=== PATIENT | female | born 1970 | race Caucasian/White ===

== ENCOUNTER 2022-02-06 08:48 | Emergency (ER) | payer BC, SELFPAY ==
--- NOTE | ~2022-02-06 | CT_ITS ---
EXAMINATION: CT ABDOMEN AND PELVIS WITHOUT CONTRAST CLINICAL INFORMATION: Kidney stone. Right flank pain. COMPARISON: None TECHNIQUE: Multidetector volumetric imaging was performed from the superior aspect of the liver through the pubic symphysis. Sagittal and coronal reformatted images were obtained on the technologist's workstation. This CT examination was performed using dose optimization techniques as appropriate, variously including the following: *Automated exposure control *Adjustment of mA and/or kV according to patient size (this includes techniques or standardized protocols for targeted exams where dose is matched to indication/reason for exam; i.e. extremities or head) *Use of iterative reconstruction technique DLP: 6-0 mGy-cm FINDINGS: LUNG BASES: The visualized lung bases are unremarkable. LIVER, GALLBLADDER, AND BILIARY TREE: The liver is normal in size, shape, and attenuation. No focal hepatic lesion or biliary ductal dilatation is present. The gallbladder is unremarkable with no evidence of radiopaque gallstones, gallbladder wall thickening, or obvious pericholecystic inflammatory changes. PANCREAS: Unremarkable. SPLEEN: Unremarkable. ADRENAL GLANDS: Unremarkable. KIDNEYS AND URETERS: There is right hydronephrosis and ureteral dilatation from a 2 mm right distal ureteral stone. The right renal pelvis is dilated out of proportion to the ureter questionable for right UPJ obstruction. No UPJ stone is seen. There are several small right renal stones, largest measuring 2 mm. The left kidney is normal. BLADDER: Not optimally distended. GASTROINTESTINAL TRACT: The small and large bowel are unremarkable. The appendix is unremarkable. ABDOMINAL WALL: No significant hernia is appreciated. LYMPH NODES: Normal. VASCULAR: Unremarkable. PELVIC VISCERA: There is an IUD in the uterus in satisfactory position. Uterus and adnexa are otherwise unremarkable. OSSEOUS STRUCTURES: Degenerative disc disease at L5-S1. CT/CT abdomen pelvis wo IV con IMPRESSION: Right hydronephrosis and ureteral dilatation from a 2 mm right distal ureteral stone. The right renal pelvis is dilated questionable for right UPJ obstruction as well. No right UPJ stone seen. Small right renal stones. Fleischner guidelines were followed.
[2022-02-06 08:56] VITALS: BP 150/99; PULSE 122; RESP 16; TEMP 36.6; O2SAT 98; BMI 29.9
[2022-02-06 10:38] LABS: MANUAL DIFF FLAG NO
[2022-02-06 10:39] LABS: Basophils Absolute Auto 0.1 X10*3/uL (0.0-0.2); Basophils Percent Auto 0.6 % (0-2); Eosinophils Absolute Auto 0.1 X10*3/uL (0.0-0.4); Hematocrit 41.5 % (37.0-47.0); Hemoglobin 14.4 g/dl (12.0-16.0); Imm Gran Abs Auto 0.04 X10*3/uL (0.00-0.03); Imm Gran Pct Auto 0.4 % (0.0-0.4); Lymphocytes Percent Auto 18.1 % (20-40); Mean Corpuscular HGB Conc 34.7 g/dl (31.0-35.0); Mean Corpuscular Hemoglobin 30.8 pg (27.0-33.0); Mean Corpuscular Volume 88.9 fL (80.0-98.0); Mean Platelet Volume 9.7 fL (9.4-12.3); Monocytes Absolute Auto 0.8 X10*3/uL (0.1-1.2); Monocytes Percent Auto 6.8 % (2-11); Neutrophils Absolute Auto 8.3 x10*3/uL (2.0-8.3); Neutrophils Percent Auto 73.1 % (45-73); Platelet Count 291 X10*3/uL (160-400); Red Blood Count 4.67 X10*6/uL (4.20-5.50); Red Cell Distribution Width 12.5 % (11.0-16.0); White Blood Count 11.3 X10*3/uL (4.8-10.8)
[2022-02-06 10:51] LABS: Appearance Urine Clear; Color Urine Yellow; Glucose Urine UA Negative (Negative); Leukocyte Esterase Urine Negative (Negative); Nitrite Urine Negative (Negative); PH 5.5 (5.0-9.0); UMIC TRIGGER UACC YES; Urine Blood Large (3+) (Negative); Urine Ketones Negative (Negative); Urine Protein Negative (Neg-Trace)
[2022-02-06 10:53] LABS: COVID-19 Test Negative (Negative)
[2022-02-06 10:56] LABS: Bacteria Urine None Seen (None Seen); Hyaline Casts Urine 0-2 /LPF (0-2); Squamous Epithelial Cell Urine 0-2 /HPF (0-2); WBC Urine 0-5 /HPF (0-5)
--- NOTE | 2022-02-06 11:00 | ED_ITS ---
HPI - Female Genitourinary General Chief complaint: Urogenital-Female Stated complaint: back pain no inj Time Seen by Provider: 02/06/22 09:30 Source: patient Mode of arrival: ambulatory Limitations: no limitations History of Present Illness HPI Narrative: 51-year-old female presents to ED for right flank pain. Patient states yesterday she had dysuria and increased urinary frequency and had a telemedicine visit and was discharged with antibiotics for presumptive UTI. Patient then states this morning she woke up with right flank pain. Patient states no fever, chills, nausea vomiting, or hematuria. Patient denies any vaginal lesions or vaginal discharge Related Data Previous Rx's Medication Instructions Recorded ketorolac 10 mg tablet 10 mg PO QID PRN pain 5 days #20 02/06/22 tabs ondansetron HCl 4 mg tablet 4 mg PO Q6H PRN nausea and 02/06/22 vomiting 2 days #8 tabs oxycodone 5 mg capsule 5 mg PO TID PRN pain 3 days #9 caps 02/06/22 Allergies Allergy/AdvReac Type Severity Reaction Status Date / Time prednisone AdvReac Agitated Verified 02/06/22 10:00 Review of Systems Review of Systems: RIght flank pain. dysuria Yes all other systems are reviewed and are negative [facility] Social History Social History Advance Directives: No Advance Directives Information Provided: No Physical Exam Vital Signs: Vital Signs: Last Vital Signs Temp 98.4 F 02/06/22 13:20 Pulse 94 02/06/22 13:20 Resp 16 02/06/22 08:56 BP 126/65 02/06/22 13:20 Pulse Ox 96 02/06/22 13:20 O2 Del Method 02/06/22 13:20 BMI result Body Mass Index 29.9 Const: General: cooperative, healthy appearing, comfortable, no acute distress, well developed, alert, awake and Physically active Orientation/consciousness: oriented to time and patient oriented x3 HEENT: Head: Yes normal to inspection, Yes No palpable skull fracture present, Yes normocephalic, Yes atraumatic and No abrasion Eyes: General: appearance normal, both eyes and all related structures Neck: Neck: Yes normal visual inspection, Yes full ROM, Yes no lymphadenopathy, Yes no meningeal signs, Yes trachea midline, Yes supple, No anterior neck swelling and No tender Chest: Chest palpation & inspection: normal inspection of the chest and normal palpation of entire chest wall Resp: Effort & Inspection: normal respiratory effort and able to speak in complete sentences Auscultation: clear to auscultation bilaterally Cardio: Jugular venous distension: no JVD Heart sounds: S1 normal heart sound present and S2 normal heart sound present GI: Inspection: Yes normal to inspection and No abdominal wall ecchymosis Palpation (GI): Soft to palpation, not firm, nontender, no guarding and not rigid : General: Yes CVA tenderness (RIght) Back/Spine/Pelvis: Back: CVA tenderness (RIght) and No back tenderness Skin: General skin exam: no rashes or lesions noted and elasticity normal Neuro: General: oriented to time, patient oriented x3, gait normal, no meningeal signs and CN's II-XI intact bilaterally Cranial nerves: Yes CN's II-XII intact bilaterally Extrem: General: Yes normal to inspection and Yes full ROM Psych: Appearance: grossly normal, well kempt and not disheveled Course Course Course Narrative: Labs, UA and CT scan ordered. Reevaluation(s) Reevaluation #1: CT scan shows 2 mm the ureter stone with right hydronephrosis. UA negative for urinary tract infection. UA shows blood. White blood cell count only 11,000. Patient is stable. Patient is safe for discharge. Patient given Toradol and Zofran Time: 22:14 MDM - Female Genitourinary MDM Narrative Medical decision making narrative: Ureteral Stone Lab Data Result diagrams: 02/06/22 10:33 02/06/22 10:33 Labs: Lab Results 02/06/22 02/06/22 02/06/22 Range/Units 10:33 10:33 10:33 WBC 11.3 H (4.8-10.8) X10*3/uL RBC 4.67 (4.20-5.50) X10*6/uL Hgb 14.4 (12.0-16.0) g/dl Hct 41.5 (37.0-47.0) % MCV 88.9 (80.0-98.0) fL MCH 30.8 (27.0-33.0) pg MCHC 34.7 (31.0-35.0) g/dl RDW 12.5 (11.0-16.0) % Plt Count 291 (160-400) X10*3/uL MPV 9.7 (9.4-12.3) fL Immature Gran % (Auto) 0.4 (0.0-0.4) % Neut % (Auto) 73.1 H (45-73) % Lymph % (Auto) 18.1 L (20-40) % [place] % (Auto) 6.8 (2-11) % Eos % (Auto) 1.0 (0-4) % Baso % (Auto) 0.6 (0-2) % Lymph # (Auto) 2.0 (1.2-4.9) X10*3/uL [place] # (Auto) 0.8 (0.1-1.2) X10*3/uL Eos # (Auto) 0.1 (0.0-0.4) X10*3/uL Baso # (Auto) 0.1 (0.0-0.2) X10*3/uL Abs Immat Gran (auto) 0.04 H (0.00-0.03) X10*3/uL Absolute Neuts (auto) 8.3 (2.0-8.3) x10*3/uL Absolute Nucleated RBC 0.000 (0.0-0.012) X10*3/uL Nucleated RBC % (auto) 0.0 (0.0-0.2) /100WBC Sodium 142 (135-145) mmol/L Potassium 4.6 (3.3-5.1) mmol/L Chloride 106 (96-108) mmol/L Carbon Dioxide 26 (22-29) mmol/L Anion Gap 15 (12-20) BUN 14 (9-16) mg/dL Creatinine 0.90 (0.5-1.4) mg/dL Estim Creat Clear Calc 78.9 Estimated GFR > 60 Random Glucose 122 H (60-115) mg/dL Calcium 9.7 (8.4-10.2) mg/dL Total Bilirubin 0.3 (0.0-1.0) mg/dL AST 23 (5-31) U/L ALT 28 (0-31) U/L Alkaline Phosphatase 70 (39-117) U/L Total Protein 7.2 (6.5-8.0) g/dL Albumin 4.1 (3.5-5.0) g/dL Beta HCG, Quant < 2 mIU/mL Urine Color Urine Appearance Urine pH (5.0-9.0) Ur Specific [place] (1.005-1.025) Urine Protein (Neg-Trace) mg/dL Urine Glucose (UA) (Negative) mg/dL Urine Ketones (Negative) mg/dL Urine Blood (Negative) Urine Nitrite (Negative) Ur Leukocyte Esterase (Negative) Urine RBC (0-2) /HPF Urine WBC (0-5) /HPF Ur Squamous Epith Cells (0-2) /HPF Urine Bacteria (None Seen) Hyaline Casts (0-2) /LPF COVID-19 ([facility]) Negative (Negative) COVID-19 Clin Com See Note 02/06/22 Range/Units 10:33 WBC (4.8-10.8) X10*3/uL RBC (4.20-5.50) X10*6/uL Hgb (12.0-16.0) g/dl Hct (37.0-47.0) % MCV (80.0-98.0) fL MCH (27.0-33.0) pg MCHC (31.0-35.0) g/dl RDW (11.0-16.0) % Plt Count (160-400) X10*3/uL MPV (9.4-12.3) fL Immature Gran % (Auto) (0.0-0.4) % Neut % (Auto) (45-73) % Lymph % (Auto) (20-40) % [place] % (Auto) (2-11) % Eos % (Auto) (0-4) % Baso % (Auto) (0-2) % Lymph # (Auto) (1.2-4.9) X10*3/uL [place] # (Auto) (0.1-1.2) X10*3/uL Eos # (Auto) (0.0-0.4) X10*3/uL Baso # (Auto) (0.0-0.2) X10*3/uL Abs Immat Gran (auto) (0.00-0.03) X10*3/uL Absolute Neuts (auto) (2.0-8.3) x10*3/uL Absolute Nucleated RBC (0.0-0.012) X10*3/uL Nucleated RBC % (auto) (0.0-0.2) /100WBC Sodium (135-145) mmol/L Potassium (3.3-5.1) mmol/L Chloride (96-108) mmol/L Carbon Dioxide (22-29) mmol/L Anion Gap (12-20) BUN (9-16) mg/dL Creatinine (0.5-1.4) mg/dL Estim Creat Clear Calc Estimated GFR Random Glucose (60-115) mg/dL Calcium (8.4-10.2) mg/dL Total Bilirubin (0.0-1.0) mg/dL AST (5-31) U/L ALT (0-31) U/L Alkaline Phosphatase (39-117) U/L Total Protein (6.5-8.0) g/dL Albumin (3.5-5.0) g/dL Beta HCG, Quant mIU/mL Urine Color Yellow Urine Appearance Clear Urine pH 5.5 (5.0-9.0) Ur Specific [place] 1.010 (1.005-1.025) Urine Protein Negative (Neg-Trace) mg/dL Urine Glucose (UA) Negative (Negative) mg/dL Urine Ketones Negative (Negative) mg/dL Urine Blood Large (3+) H (Negative) Urine Nitrite Negative (Negative) Ur Leukocyte Esterase Negative (Negative) Urine RBC 6-10 H (0-2) /HPF Urine WBC 0-5 (0-5) /HPF Ur Squamous Epith Cells 0-2 (0-2) /HPF Urine Bacteria None Seen (None Seen) Hyaline Casts 0-2 (0-2) /LPF COVID-19 ([facility]) (Negative) COVID-19 Clin Com Discharge Plan Discharge Clinical Impression: Calculus, ureteral Patient Disposition: Home, Self-Care Instructions: Renal Colic (ED), Ureteral Stones (ED) Additional Instructions: Return to the ED immediately for worsening flank pain, fever, chills, abdominal pain, nausea, vomiting, inability to tolerate p.o., gross hematuria, weakness, or any other concerning symptoms. You will be discharged with pain medication. You will need follow-up with urologist and primary care provider. You will be given days off from work. Prescriptions: New ketorolac 10 mg tablet 10 mg PO QID PRN (Reason: pain) 5 Days Qty: 20 0RF Rx Instructions: Patient received 30 mg IM Toradol oxycodone 5 mg capsule 5 mg PO TID PRN (Reason: pain) 3 Days Qty: 9 0RF Rx Instructions: Partial Fill upon patient request. Side effect is drowsiness. Do not take at work or while driving ondansetron HCl 4 mg tablet 4 mg PO Q6H PRN (Reason: nausea and vomiting) 2 Days Qty: 8 0RF Referrals: [facility] [place] Urology Services [Provider Group] (RIght ureteral stone) Stand Alone Forms: Work/School Release Interventions: ED Discharge Assessment Last Done: 02/06/22 13:34 Discharge Date/Time: 02/06/22 13:35 Print Language: Bruneian
[2022-02-06 11:01] LABS: Alanine Aminotransferase 28 U/L (0-31); Albumin Level 4.1 g/dL (3.5-5.0); Alkaline Phosphatase 70 U/L (39-117); Anion Gap 15 (12-20); Aspartate Amino Transferase 23 U/L (5-31); Bilirubin Total 0.3 mg/dL (0.0-1.0); Blood Urea Nitrogen 14 mg/dL (9-16); Calcium 9.7 mg/dL (8.4-10.2); Carbon Dioxide 26 mmol/L (22-29); Chloride 106 mmol/L (96-108); Creatinine Clr Calc Pharmacy 78.9; Estimated Glomerular Filt Rate > 60; Glucose Random 122 mg/dL (60-115); Potassium 4.6 mmol/L (3.3-5.1); Sodium 142 mmol/L (135-145); Total Protein 7.2 g/dL (6.5-8.0)
[2022-02-06 11:58] LABS: HCG Quantitative < 2 mIU/mL
[2022-02-06] MEDS: Ketorolac Tromethamine 30 MG/ML VIAL IM (12:59)
[2022-02-06] MEDS: Ondansetron ODT 4 MG TAB.RAPDIS TRANSLINGU (13:03)
[2022-02-06 13:20] VITALS: BP 126/65; PULSE 94; TEMP 36.9; O2SAT 96
== END 2022-02-06 13:35 | disposition home or self-care (01) ==
PROVIDERS: Physician Assistant; Emergency Provider Student in an Organized Health Care Education/Training Program
DX: N13.2 Hydronephrosis with renal and ureteral calculous obstruction (principal); Z20.822 Contact with and (suspected) exposure to COVID-19
CPT/HCPCS: 74176; 80053; 81001; 84702; 85025; 87635; 96372; 99283; 99284; J1885

== ENCOUNTER 2023-10-24 06:08 | Emergency (ER) | payer BC, SELFPAY ==
[2023-10-24] VITALS (7 sets, daily range): BP systolic 102–146; BP diastolic 51–102; PULSE 94–136; RESP 12–18; TEMP 36.7–36.9; O2SAT 93–100; BMI 32.6
--- NOTE | 2023-10-24 | ECG_ITS ---
Test Reason : ABDOMINAL PAIN Blood Pressure : / mmHG Vent. Rate : 121 BPM Atrial Rate : 121 BPM P-R Int : 148 ms QRS Dur : 070 ms QT Int : 326 ms P-R-T Axes : 042 -02 071 degrees QTc Int : 462 ms Sinus tachycardia Cannot rule out Anterior infarct , age undetermined Abnormal ECG No previous ECGs available Referred By: Generic ED Physician Electronically Signed By:BEVERLY MIRELES MD
--- NOTE | ~2023-10-24 | CT_ITS ---
EXAMINATION: CT ABDOMEN AND PELVIS WITH AND WITHOUT CONTRAST TRIPLE PHASE CT gi bleed abd pel wo/w IVcon INDICATION: Female of 53 years with history of Reason for Exam abd pain, dark vomit COMPARISON: Most recent abdominal/pelvis CT: 02/06/2022. TECHNIQUE: Triphasic study was performed. Multidetector volumetric imaging was performed from the lung bases to the pubic symphysis following the administration of: Oral contrast: None Intravenous contrast: 80 mL Omnipaque 350 No contrast reaction reported. Sagittal and coronal reformatted images were obtained on the technologist workstation. This CT examination was performed using dose optimization techniques as appropriate, variously including the following: *Automated exposure control. *Adjustment of mA and/or kV according to patient size (this includes techniques or standardized protocols for targeted exams where dose is matched to indication/reason for exam, i.e., extremities or head). *Use of iterative reconstruction technique. Total exam dose-length product 1682 mGy-cm. FINDINGS: VISUALIZED CHEST: Visualized lung bases demonstrate mild bilateral lower lobe dependent atelectasis. No pleural effusion. Mediastinum demonstrates normal heart size. No pericardial effusion. LIVER, GALLBLADDER, AND BILIARY TREE: Liver is of low attenuation due to hepatic steatosis without intrahepatic masses, ductal dilatation. The gallbladder demonstrates no obvious pericholecystic inflammatory changes or gallbladder wall thickening. No cholelithiasis. No perihepatic ascites. PANCREAS: Normal size. No definite mass, surrounding fluid, or inflammatory changes. SPLEEN: Normal size. No focal lesion. No perisplenic ascites. ADRENAL GLANDS: Normal in size. No masses. KIDNEYS AND URETERS: The kidneys are normal in size, shape, and attenuation. No hydronephrosis or hydroureter. No renal calculi. GASTROINTESTINAL TRACT: Loops of small bowel are dilated the stomach is unremarkable consistent with an appearance of small bowel obstruction. The zone of transition seen in the right lower quadrant. Appendix is not identified. There is no evidence of contrast extravasation to suggest bleed. Colonic loops are decompressed. No evidence of diverticulitis, colitis, diverticulosis. ABDOMINAL WALL: No hernias. LYMPHOVASCULAR STRUCTURES: No lymphadenopathy. The aorta is normal in caliber. BLADDER: Not fully distended, limiting its complete evaluation. No wall thickening. No focal mass or bladder calculi seen. PELVIC VISCERA: There is IUD in the uterus OSSEOUS STRUCTURES: There are degenerative changes at the level of L5-S1 CT/CT gi bleed abd pel wo/w IVcon IMPRESSION: 1. Small bowel obstruction with zone of transition in the right lower quadrant. No evidence of contrast extravasation to suggest bleed. 2. Hepatic steatosis.
[2023-10-24] MEDS: 0.9 % Sodium Chloride 1,000 ML 999 ML IV (06:45)
[2023-10-24 06:55] LABS: Basophils Percent Auto 0.2 % (0-2); Hematocrit 45.2 % (37.0-47.0); Imm Gran Abs Auto 0.06 X10*3/uL (0.00-0.03); Imm Gran Pct Auto 0.4 % (0.0-0.4); Lymphocytes Absolute Auto 1.3 X10*3/uL (1.2-4.9); Lymphocytes Percent Auto 7.8 % (20-40); MANUAL DIFF FLAG NO; Mean Corpuscular HGB Conc 35.4 g/dl (31.0-35.0); Mean Corpuscular Hemoglobin 31.3 pg (27.0-33.0); Mean Corpuscular Volume 88.3 fL (80.0-98.0); Monocytes Absolute Auto 0.6 X10*3/uL (0.1-1.2); Monocytes Percent Auto 3.3 % (2-11); Neutrophils Absolute Auto 14.5 x10*3/uL (2.0-8.3); Neutrophils Percent Auto 88.3 % (45-73); Platelet Count 345 X10*3/uL (160-400); Red Blood Count 5.12 X10*6/uL (4.20-5.50); Red Cell Distribution Width 12.8 % (11.0-16.0); White Blood Count 16.4 X10*3/uL (4.8-10.8)
[2023-10-24 07:15] LABS: Alanine Aminotransferase 16 U/L (0-31); Albumin Level 4.2 g/dL (3.5-5.0); Alkaline Phosphatase 82 U/L (39-117); Anion Gap 15 (12-20); Aspartate Amino Transferase 21 U/L (5-31); Bilirubin Total 0.4 mg/dL (0.0-1.0); Blood Urea Nitrogen 16 mg/dL (9-16); Calcium 9.9 mg/dL (8.4-10.2); Carbon Dioxide 21 mmol/L (22-29); Chloride 108 mmol/L (96-108); Creatinine Clr Calc Pharmacy 76.2; Estimated Glomerular Filt Rate > 60; Glucose Random 213 mg/dL (60-115); Lipase 21 U/L (8-78); Potassium 4.4 mmol/L (3.3-5.1); Sodium 140 mmol/L (135-145); Total Protein 7.9 g/dL (6.5-8.0)
--- NOTE | 2023-10-24 07:26 | ED.ABDPAIN ---
HPI - Abdominal Pain General Chief Complaint: Abdominal Pain Stated Complaint: kidney pain, stomach pain Time Seen by Provider: 10/24/23 06:34 Source: patient and RN notes reviewed Mode of arrival: ambulatory Limitations: no limitations History of Present Illness ED Provider: Velia Madrigal PA-C HPI narrative: This is a 54-year-old female, with no known medical problems, who presents emergency department with complaints of abdominal pain, diarrhea, vomiting and unable to tolerate p.o. since yesterday at 5pm. Patient states that she ate chips and salsa and since then she has had multiple episodes of vomiting which was dark in color, as well as epigastric pain and multiple episodes of diarrhea. She denies any bloody or black stool. She denies any fevers or chills. She has been attempting to drink fluids however this just causes her to vomit and have worsening pain. She states that she has had several episodes of similar symptoms in the past which typically resolve after 24 hours however states that this pain is much worse. She does not see a primary care physician. She has never had a colonoscopy. She denies any chest pain, shortness of breath, or urinary symptoms. She rarely drinks alcohol. She does not take ibuprofen regularly. No other complaints or concerns at this time. MD elicited complaint: abdominal pain Onset (ago): day(s) Pain Consistency: constant Location: epigastric Severity: similar to previous episodes Quality: cramping and aching Radiation: none Migration to: no migration Exacerbating factors: eating Relieving factors: nothing Associated symptoms: nausea, vomiting and diarrhea Related Data Previous Rx's ?Medication ?Instructions ?Recorded ketorolac 10 mg tablet 10 mg PO QID PRN pain 5 days #20 02/06/22 tabs ondansetron HCl 4 mg tablet 4 mg PO Q6H PRN nausea and 02/06/22 vomiting 2 days #8 tabs oxycodone 5 mg capsule 5 mg PO TID PRN pain 3 days #9 caps 02/06/22 aluminum-mag hydroxide-simethicone 5 ml PO 5XD PRN dyspepsia #3,000 mL 10/24/23 200 mg-200 mg-20 mg/5 mL oral susp (Maalox Advanced) omeprazole 20 mg capsule,delayed 20 mg PO DAILY 2 weeks #14 caps 10/24/23 release ondansetron 4 mg disintegrating 4 mg PO Q8H PRN nausea and 10/24/23 tablet vomiting #14 tabs Allergies Allergy/AdvReac Type Severity Reaction Status Date / Time prednisone AdvReac Agitated Verified 10/24/23 06:14 Review of Systems Review of Systems Yes all other systems are reviewed and are negative Constitutional: Reports as per HPI Physical Exam ED Vital Signs: Vital Signs - 24 hr 10/24/23 06:11 10/24/23 06:24 10/24/23 07:50 Temperature 98.3 F 98.3 F Pulse Rate 130 H 136 H Respiratory Rate 18 12 16 Blood Pressure 127/85 146/102 H Pulse Oximetry 96 93 Oxygen Delivery Method Room Air Room Air 10/24/23 08:00 10/24/23 09:26 10/24/23 12:19 Temperature 98.1 F 98.5 F Pulse Rate 100 94 Respiratory Rate 14 16 16 Blood Pressure 102/51 L 105/55 L Pulse Oximetry 94 100 Oxygen Delivery Method Room Air Room Air 10/24/23 15:30 Temperature 98.5 F Pulse Rate 94 Respiratory Rate 18 Blood Pressure 105/55 L Pulse Oximetry 100 Oxygen Delivery Method Room Air BMI result Body Mass Index 32.6 Const General: cooperative, comfortable and no acute distress Orientation/consciousness: patient oriented x3 Limitations: no limitations HENMD Head: Yes normal to inspection, Yes normocephalic and Yes atraumatic Ears: hearing grossly normal bilaterally General nose exam: Normal external nose present Face and sinus: Yes normal facial exam Mouth: Normal oral and palatal mucosa present, oropharynx normal and moist mucous membranes Throat: Yes posterior oropharynx normal Eyes General: appearance normal, both eyes and all related structures Eyelids: Yes eyelids normal Conjunctivae: conjunctivae normal Sclerae: sclerae normal Pupils: Equal, round and reactive pupils present EOM: EOMs intact bilaterally Neck Neck: Yes normal visual inspection, Yes full ROM and Yes no lymphadenopathy Lymphatic: no lymphadenopathy noted Chest Chest palpation & inspection: normal inspection of the chest Resp Effort & Inspection: normal respiratory effort and able to speak in complete sentences Auscultation: clear to auscultation bilaterally, no crackles, no rales, no rhonchi and no wheezes Cardio Rate: regular rate Rhythm: regular rhythm Heart sounds: S1 normal heart sound present and S2 normal heart sound present GI Other: Patient with tenderness palpation in the epigastrium, negative Burks's sign. Abdomen is soft No tenderness palpation in the right lower quadrant hypoactive bowel sounds present in all 4 quadrants. Inspection: Yes normal to inspection Skin General skin exam: no rashes or lesions noted Trauma: no lacerations or abrasions Wounds: no wounds Neuro General: patient oriented x3 and moves all extremities Cranial nerves: Yes Equal, round and reactive pupils present Extrem General: Yes normal to inspection Right upper extremity: normal to inspection Left upper extremity: normal to inspection Right lower extremity: normal to inspection Left lower extremity: normal to inspection Course Reevaluation(s) Reevaluation #1: CT scan returns, revealing small bowel obstruction with zone of transition in the right lower quadrant. No evidence of contrast extravasation to suggest bleed. Hepatic steatosis. I reviewed this workup with my attending physician, Dr. Tenorio, as she does have some hyperattenuation of the posterior aspect of the stomach concerning for possible ulcer - therefore I am reaching out to the radiology department. She is feeling improved after IV morphine and IV zofran, and IV protonix, however notes increased pain with PO intake. She still remains to be stable at this time. I spoke to radiologist, Dr. Parmar, to review increased density in the stomach wall, she reports that this is likely a pill versus foreign body. Does not appear to be metal due to density level. It is not within the wall of the lumen. Dr. Parmar states that this is not a ulcer. Discussed with my attending physician. Will continue to closely monitor and page out to surgeon, Dr. Segal for recommendations. Time: 12:43 Reevaluation #2: Surgical PA came and assessed patient and reviewed overall case. Surgical PA advises to p.o. challenge and see if her pain returns. She is currently asymptomatic and feeling well. Patient given crackers and water and will reassess in a 1/2 hour to an hour to ensure her symptoms do not return. Time: 13:38 Reevaluation #3: Patient re-evaluated, eating and drinking without return of symptoms. Advised that symptoms are likely gastritis in nature. Advised to slowly advance diet, will discharge on PPI, Maalox and Zofran. Given strict return precautions. She understands and agrees with plan. Also given referral to GI for follow-up as she has not had her routine colonoscopies. Patient stable for discharge. Time: 14:30 Medical Decision Making Medical Decision Making MDM Narrative: This is a 53-year-old female, with no known medical problems, who presents emergency department with complaints of epigastric pain, nausea, vomiting, and diarrhea since yesterday. On arrival, patient appears to be uncomfortable secondary to pain. She is tenderness palpation in the epigastrium. She has no rebound or guarding. Negative Burks sign. She has had dark-colored vomit therefore I am concerned for possible gastric ulcers/bleeding ulcer. She is hemodynamically stable. Differential diagnoses including gastric ulcers, bleeding ulcer, gastroenteritis, small bowel obstruction, acute abdomen, cholecystitis. Plan: Labs, EKG, CT abdomen and pelvis, UA Differential Diagnosis Differential Diagnoses: The differential diagnosis associated with the presentation includes Consult Healthcare Provider Management of the patient was discussed with: Senior Java Web Application Developer Dr. Segal, Tala gann PA-C Lab Data [facility] Lab Attestation statement: I reviewed the patient's lab results. Slight leukocytosis at 16.4 with left shift, chemistry within normal limits. She does have hyperglycemia at 2:13 a.m., no known diagnosis of diabetes. Urine with high specific gravity, glucosuria, small blood, and rbc's. Does not appear to be infected. She has not . 10/24/23 06:50 10/24/23 06:50 Labs: Lab Results 10/24/23 10/24/23 10/24/23 Range/Units 06:50 10:09 12:41 WBC 16.4 H (4.8-10.8) X10*3/uL RBC 5.12 (4.20-5.50) X10*6/uL Hgb 16.0 (12.0-16.0) g/dl Hct 45.2 (37.0-47.0) % MCV 88.3 (80.0-98.0) fL MCH 31.3 (27.0-33.0) pg MCHC 35.4 H (31.0-35.0) g/dl RDW 12.8 (11.0-16.0) % Plt Count 345 (160-400) X10*3/uL MPV 10.0 (9.4-12.3) fL Immature Gran % (Auto) 0.4 (0.0-0.4) % Neut % (Auto) 88.3 H (45-73) % Lymph % (Auto) 7.8 L (20-40) % Roberts % (Auto) 3.3 (2-11) % Eos % (Auto) 0.0 (0-4) % Baso % (Auto) 0.2 (0-2) % Lymph # (Auto) 1.3 (1.2-4.9) X10*3/uL Roberts # (Auto) 0.6 (0.1-1.2) X10*3/uL Eos # (Auto) 0.0 (0.0-0.4) X10*3/uL Baso # (Auto) 0.0 (0.0-0.2) X10*3/uL Abs Immat Gran (auto) 0.06 H (0.00-0.03) X10*3/uL Absolute Neuts (auto) 14.5 H (2.0-8.3) x10*3/uL Absolute Nucleated RBC 0.000 (0.0-0.012) X10*3/uL Nucleated RBC % (auto) 0.0 (0.0-0.2) /100WBC Sodium 140 (135-145) mmol/L Potassium 4.4 (3.3-5.1) mmol/L Chloride 108 (96-108) mmol/L Carbon Dioxide 21 L (22-29) mmol/L Anion Gap 15 (12-20) BUN 16 (9-16) mg/dL Creatinine 0.95 (0.5-1.4) mg/dL Estim Creat Clear Calc 76.2 Estimated GFR > 60 Random Glucose 213 H (60-115) mg/dL Estimat Average Glucose 143 mg/dL Hemoglobin A1c % 6.6 H (<6.0) % Calcium 9.9 (8.4-10.2) mg/dL Total Bilirubin 0.4 (0.0-1.0) mg/dL AST 21 (5-31) U/L ALT 16 (0-31) U/L Alkaline Phosphatase 82 (39-117) U/L Troponin I High Sens < 2.7 (<3.5-17.0) ng/L Total Protein 7.9 (6.5-8.0) g/dL Albumin 4.2 (3.5-5.0) g/dL Lipase 21 (8-78) U/L Urine Color Yellow Urine Appearance Clear Urine pH 5.5 (5.0-9.0) Ur Specific [place] >= 1.030 H (1.005-1.025) Urine Protein Trace (Neg-Trace) mg/dL Urine Glucose (UA) 100 H (Negative) mg/dL Urine Ketones Negative (Negative) mg/dL Urine Blood Small (1+) H (Negative) Urine Nitrite Negative (Negative) Ur Leukocyte Esterase Negative (Negative) Urine RBC 6-10 H (0-2) /HPF Urine WBC 0-5 (0-5) /HPF Ur Squamous Epith Cells 0-2 (0-2) /HPF Urine Bacteria None Seen (None Seen) Hyaline Casts 0-2 (0-2) /LPF Urine Test NEGATIVE (NEGATIVE) Radiology Impression Discussion of test interpretation with radiology: I have reviewed the radiologist's reading. Radiologist Impression: Addendum: Findings discussed with DC Madrigal at 1225 on 10/24/2023 Addendum Dictated By: Hilario Parmar MD Addendum Signed By: <Electronically signed by Hilario Parmar MD in OV> 10/24/23 1228 Addendum Cosigned By: DD/ TD/TT: / EXAMINATION: CT ABDOMEN AND PELVIS WITH AND WITHOUT CONTRAST TRIPLE PHASE CT gi bleed abd pel wo/w IVcon INDICATION: Female of 53 years with history of Reason for Exam abd pain, dark vomit COMPARISON: Most recent abdominal/pelvis CT: 02/06/2022. TECHNIQUE: Triphasic study was performed. Multidetector volumetric imaging was performed from the lung bases to the pubic symphysis following the administration of: Oral contrast: None Intravenous contrast: 80 mL Omnipaque 350 No contrast reaction reported. Sagittal and coronal reformatted images were obtained on the technologist workstation. This CT examination was performed using dose optimization techniques as appropriate, variously including the following: *Automated exposure control. *Adjustment of mA and/or kV according to patient size (this includes techniques or standardized protocols for targeted exams where dose is matched to indication/reason for exam, i.e., extremities or head). *Use of iterative reconstruction technique. Total exam dose-length product 1682 mGy-cm. FINDINGS: VISUALIZED CHEST: Visualized lung bases demonstrate mild bilateral lower lobe dependent atelectasis. No pleural effusion. Mediastinum demonstrates normal heart size. No pericardial effusion. LIVER, GALLBLADDER, AND BILIARY TREE: Liver is of low attenuation due to hepatic steatosis without intrahepatic masses, ductal dilatation. The gallbladder demonstrates no obvious pericholecystic inflammatory changes or gallbladder wall thickening. No cholelithiasis. No perihepatic ascites. PANCREAS: Normal size. No definite mass, surrounding fluid, or inflammatory changes. SPLEEN: Normal size. No focal lesion. No perisplenic ascites. ADRENAL GLANDS: Normal in size. No masses. KIDNEYS AND URETERS: The kidneys are normal in size, shape, and attenuation. No hydronephrosis or hydroureter. No renal calculi. GASTROINTESTINAL TRACT: Loops of small bowel are dilated the stomach is unremarkable consistent with an appearance of small bowel obstruction. The zone of transition seen in the right lower quadrant. Appendix is not identified. There is no evidence of contrast extravasation to suggest bleed. Colonic loops are decompressed. No evidence of diverticulitis, colitis, diverticulosis. ABDOMINAL WALL: No hernias. LYMPHOVASCULAR STRUCTURES: No lymphadenopathy. The aorta is normal in caliber. BLADDER: Not fully distended, limiting its complete evaluation. No wall thickening. No focal mass or bladder calculi seen. PELVIC VISCERA: There is IUD in the uterus OSSEOUS STRUCTURES: There are degenerative changes at the level of L5-S1 CT/CT gi bleed abd pel wo/w IVcon IMPRESSION: 1. Small bowel obstruction with zone of transition in the right lower quadrant. No evidence of contrast extravasation to suggest bleed. 2. Hepatic steatosis. Dictated By: Hilario Parmar MD Medications Administered Discontinued Medications Generic Name Dose Route Start Last Admin Trade Name Freq PRN Reason Stop Dose Admin Sodium Chloride 1,000 mls @ 999 mls/hr 10/24/23 06:45 10/24/23 08:20 Ns IV 10/24/23 07:45 Infused .Q1H1M JULIANA Infusion Iohexol 100 ml 10/24/23 08:23 10/24/23 08:23 Iohexol 350 Mg/Ml 100 Ml Infus..Btl IV 10/24/23 08:24 80 ml ONCE ONE Administration Morphine Sulfate 4 mg 10/24/23 07:30 10/24/23 07:50 Morphine Sulfate 4 Mg/Ml Cartridge IVPUSH 10/24/23 07:31 4 mg ONCE ONE Administration Protocol Ondansetron HCl 4 mg 10/24/23 07:28 10/24/23 07:47 Ondansetron Hcl 4 Mg/2 Ml Vial IVPUSH 10/24/23 07:29 4 mg ONCE ONE Administration Pantoprazole Sodium 40 mg 10/24/23 07:28 10/24/23 07:50 Pantoprazole Sodium 40 Mg/10 Ml Vial IVPUSH 10/24/23 07:29 40 mg ONCE ONE Administration Discharge Plan Discharge Clinical Impression: Abdominal pain, Gastritis, Hyperglycemia, Diabetes Patient Disposition: Home, Self-Care Instructions: Gastritis (ED), Type 2 Diabetes in Adults: New Diagnosis (ED), Abdominal Pain (ED), Diabetes and Nutrition (ED), Diabetes and Exercise (ED) Additional Instructions: You were seen in the emergency department due to abdominal pain. Your CT scan revealed a small bowel obstruction. You were seen by the general surgery team who did not recommend surgery at this time and advised to advance diet as tolerated. Your symptoms are likely due to peptic ulcer disease/gastritis. Avoid alcohol, as well as ibuprofen/NSAIDs as this can worsen pain. I am recommending you take omeprazole, you may also take Maalox as needed for symptomatic pain. I am also prescribing you Zofran, this is the nausea medication that you received in the department today. Advanced diet as tolerated including eating a bland diet, liquid diet, and bland food, avoid spicy or fried food. You need to follow-up with your primary care physician. I am also giving your referral to Gastroenterology. Call to make an appointment. If any new or worsening symptoms occur including but not limited to worsening pain, chest pain, shortness of breath, please return for re-evaluation. You also had an elevated glucose level as well as an elevated hemoglobin A1c at 6.6. This is consistent with diabetes. This is borderline therefore I am having you follow-up with your PCP. Prescriptions: New omeprazole 20 mg capsule,delayed release(DR/EC) 20 mg PO DAILY 14 Days Qty: 14 0RF ondansetron 4 mg tablet,disintegrating 4 mg PO Q8H PRN (Reason: nausea and vomiting) Qty: 14 0RF alum-mag hydroxide-simeth [Maalox Advanced] 200-200-20 mg/5 mL suspension 5 ml PO 5XD PRN (Reason: dyspepsia) Qty: 3000 0RF Rx Instructions: administer between meals and at bedtime No Action ketorolac 10 mg tablet 10 mg PO QID PRN (Reason: pain) 5 Days Qty: 20 0RF Rx Instructions: Patient received 30 mg IM Toradol oxycodone 5 mg capsule 5 mg PO TID PRN (Reason: pain) 3 Days Qty: 9 0RF Rx Instructions: Partial Fill upon patient request. Side effect is drowsiness. Do not take at work or while driving ondansetron HCl 4 mg tablet 4 mg PO Q6H PRN (Reason: nausea and vomiting) 2 Days Qty: 8 0RF Referrals: [facility] [place] Gastroenterology Services [Provider Group] Interventions: ED Discharge Assessment Last Done: 10/24/23 15:30 Discharge Date/Time: 10/24/23 15:33 Print Language: Hungarian
[2023-10-24] MEDS: ondansetron HCL 4 MG/2 ML VIAL IVPUSH (07:47)
[2023-10-24] MEDS: Pantoprazole Sodium 40 MG/10 ML VIAL IVPUSH (07:50)
[2023-10-24] MEDS: Morphine Sulfate 4 MG/ML CARTRIDGE IVPUSH (07:50)
[2023-10-24 08:22] LABS: Troponin-I High Sensitivity < 2.7 ng/L (<3.5-17.0)
[2023-10-24] MEDS: iohexoL 350 MG/ML 100 ML INFUS..BTL IV (08:23)
[2023-10-24 10:16] LABS: Appearance Urine Clear; Color Urine Yellow; Glucose Urine UA 100 mg/dL (Negative); Leukocyte Esterase Urine Negative (Negative); Nitrite Urine Negative (Negative); PH 5.5 (5.0-9.0); Specific Gravity - Urine >= 1.030 (1.005-1.025); UMIC TRIGGER UACC YES; Urine Blood Small (1+) (Negative); Urine Ketones Negative (Negative); Urine Protein Trace mg/dL (Neg-Trace)
[2023-10-24 10:17] LABS: UPreg QC Valid YES; Urine Pregnancy NEGATIVE (NEGATIVE)
[2023-10-24 10:18] LABS: Bacteria Urine None Seen (None Seen); Hyaline Casts Urine 0-2 /LPF (0-2); Squamous Epithelial Cell Urine 0-2 /HPF (0-2); WBC Urine 0-5 /HPF (0-5)
[2023-10-24 12:54] LABS: Estimated Average Glucose 143 mg/dL; Hemoglobin A1c % 6.6 % (<6.0)
--- NOTE | 2023-10-24 13:41 | PM.CNGS ---
History of Present Illness Consult details Consult date: 10/24/23 Reason for consult: abdominal pain Narrative: Shanique Moran is a 53 year old female with no known PMH who presented to the ED with c/o epigastric abdominal pain. She reports she developed severe epigastric pain last night after eating chips and salsa. The pain was nonradiating. It was associated with nausea, vomiting, diarrhea. She reports emesis was brown liquid in nature. She felt bloated at that time and took gas-x. She denies sick contacts, new medications, recent travel. She denies fever, chills, constipation, melena, hematochezia, prior surgical history. She has never had a colonoscopy before. She reports three prior episodes of similar pain which all resolved within 24 hrs. She reports after one episode she began an over the counter PPI and felt improved however developed bloody stools after day 13 so she stopped. She has been following a bland diet and had been feeling better until the episode today. She denies cigarette smoking, significant ETOH use. She was taking Ibuprofen for her back pain but stopped taking them after her initial episode in June. She feels improved today after receiving morphine and zofran and currently denies any abdominal pain or nausea. Work up in the ED included CBC, BMP, LFTs which was significant for a leukocytosis of 16.4. CT scan shows dilated loops of small bowel, no evidence of contrast extravasation to suggest bleed. Review of Systems Constitutional: Constitutional: Denies chills and Denies fever(s) ENT: Denies dizziness Cardiovascular: Cardiovascular: Denies chest pain and Denies dyspnea Respiratory: Respiratory: Denies dyspnea Gastrointestinal: Gastrointestinal: Reports as per HPI, Reports abdominal pain, Denies melena, Denies hematochezia, Reports heartburn, Reports diarrhea, Reports nausea and Reports vomiting Genitourinary: Genitourinary: Denies dysuria Integumentary/Breasts: Skin/Breast: Denies rash and Denies jaundice Neurologic: Denies dizziness PMFSH Social History Social History (System 02/19/23 @ 15:20 by Kira Car) Smoked in Last 30 Days: No Use of substances other than those prescribed or required for medical reasons: No Advance Directives: No Advance Directives Information Provided: No Do you have a plan to hurt others: No Plan Patient : No Meds Allergies Allergy/AdvReac Type Severity Reaction Status Date / Time prednisone AdvReac Agitated Verified 10/24/23 06:14 Physical Exam Vital Signs: Vital Signs: Last Vital Signs Temp 98.5 F 10/24/23 12:19 Pulse 94 10/24/23 12:19 Resp 16 10/24/23 12:19 BP 105/55 L 10/24/23 12:19 Pulse Ox 100 10/24/23 12:19 O2 Del Method Room Air 10/24/23 12:19 BMI result Body Mass Index 32.6 Const: General: comfortable, no acute distress and alert Nutritional Appearance: well nourished Orientation/consciousness: patient oriented x3 Resp: Effort & Inspection: normal respiratory effort Cardio: Rate: regular rate GI: Inspection: Yes normal to inspection, No distended, No scar and No visible herniation Palpation (GI): Soft to palpation, nontender, no guarding, not rigid and No Rebound tenderness present Percussion: Yes normal to percussion Skin: General skin exam: no rashes or lesions noted and no jaundice Neuro: General: patient oriented x3 and moves all extremities Results Labs 10/24/23 06:50 10/24/23 06:50 Labs: Abnormal lab results 10/24/23 10/24/23 10/24/23 Range/Units 06:50 10:09 12:41 WBC 16.4 H (4.8-10.8) X10*3/uL MCHC 35.4 H (31.0-35.0) g/dl Neut % (Auto) 88.3 H (45-73) % Lymph % (Auto) 7.8 L (20-40) % Abs Immat Gran (auto) 0.06 H (0.00-0.03) X10*3/uL Absolute Neuts (auto) 14.5 H (2.0-8.3) x10*3/uL Carbon Dioxide 21 L (22-29) mmol/L Random Glucose 213 H (60-115) mg/dL Hemoglobin A1c % 6.6 H (<6.0) % Ur Specific [place] >= 1.030 H (1.005-1.025) Urine Glucose (UA) 100 H (Negative) mg/dL Urine Blood Small (1+) H (Negative) Urine RBC 6-10 H (0-2) /HPF Short CBC 10/24/23 Range/Units 06:50 WBC 16.4 H (4.8-10.8) X10*3/uL Hgb 16.0 (12.0-16.0) g/dl Hct 45.2 (37.0-47.0) % Plt Count 345 (160-400) X10*3/uL BMP 10/24/23 06:50 Sodium 140 Potassium 4.4 Chloride 108 Carbon Dioxide 21 L BUN 16 Creatinine 0.95 Calcium 9.9 Liver Function 10/24/23 Range/Units 06:50 Total Bilirubin 0.4 (0.0-1.0) mg/dL AST 21 (5-31) U/L ALT 16 (0-31) U/L Alkaline Phosphatase 82 (39-117) U/L Albumin 4.2 (3.5-5.0) g/dL Urine 10/24/23 Range/Units 10:09 Urine Color Yellow Urine Appearance Clear Urine pH 5.5 (5.0-9.0) Ur Specific [place] >= 1.030 H (1.005-1.025) Urine Protein Trace (Neg-Trace) mg/dL Urine Glucose (UA) 100 H (Negative) mg/dL Urine Test NEGATIVE (NEGATIVE) All other labs normal. Imaging Abdomen CT scan report/results: report reviewed and image reviewed Assessment and Plan (1) Abdominal pain: Status: Acute Plan 53 year old female with acute onset epigastric pain associated with nausea, vomiting. CT scan shows very mildly dilated small bowel however she has air in rectum and is having diarrhea which goes against SBO. Her overall history seems more consistent with gastritis/PUD. She is non toxic appearing and her abdomen is very benign and nontender. If she can tolerate oral intake, stable for dc to home with outpatient gastroenterology follow up for possible gastritis/PUD and she also needs a colonoscopy. Procedures Date of Service Date of Service: 10/24/23
== END 2023-10-24 15:33 | disposition home or self-care (01) ==
PROVIDERS: Emergency Medicine; Physician Assistant Medical; Emergency Provider Emergency Medicine
DX: K29.70 Gastritis, unspecified, without bleeding (principal); E11.65 Type 2 diabetes mellitus with hyperglycemia; R10.9 Unspecified abdominal pain; R19.7 Diarrhea, unspecified; R10.13 Epigastric pain; R11.2 Nausea with vomiting, unspecified
CPT/HCPCS: 36415; 74178; 80053; 81001; 81025; 83036; 83690; 84484; 85025; 93005; 96361; 96374; 96375; 99284; 99285; C9113; J2270; J2405; Q9967

== ENCOUNTER → 2023-10-24 06:18 | Outpatient (BNV) | payer BC, SELFPAY | PROVIDERS: Emergency Provider Emergency Medicine; Visit Provider Physician Assistant Surgical | DX: R10.9 Unspecified abdominal pain (principal) | CPT/HCPCS: 99283 ==

== ENCOUNTER → 2023-10-24 06:33 | Outpatient (BNV) | payer BC, SELFPAY | PROVIDERS: Emergency Provider Emergency Medicine; Visit Provider Internal Medicine Cardiovascular Disease | DX: R00.0 Tachycardia, unspecified (principal) | CPT/HCPCS: 93010 ==

== ENCOUNTER 2024-08-29 11:38 | Outpatient (AMB) | payer BC, SELFPAY ==
--- NOTE | 2024-08-29 11:40 | MHC.OFFVIS ---
Vital Signs 08/29/24 11:53 Height 5 ft 5 in Weight 171 lb 4 oz BMI 28.5 BP 120/70 Blood Pressure Location Rt brachial Position Sitting Pulse 104 H Pulse Source Pulse Oximeter Pulse Oximetry (%) 96 Oxygen Delivery Method Room Air Intake Visit Reasons: [place] Screening & Hx Gastritis Intake Note: NEW PATIENT for initial colo screening, hx of gastritis. Chief Complaint; Pt reports the ER had supplied ddx of gastritis during ER visit September 2023. Pt had believe that the sx she had been experiencing were related to possible peptic ulcer. Has not had any sx since last year. No concerns at this time. Outpatient Therapist Required: No Accompanied by: Self / Same As Patient Allergies prednisone Adverse Reaction (Verified 08/29/24 11:40) Agitated Medication List - Last Reconciled 08/29/24 by RAJ Velásquez-FARRAH [id number] C-E-herbal 1,250 mcg-50 mg -67.5 mg-15 mg tabs PO bisacodyl (Dulcolax (bisacodyl)) 20 mg (4 x 5 mg) PO ONCE 1 day diphenhydramine-acetaminophen 25-500 mg (Tylenol PM Extra Strength) 2 tabs PO BEDTIME PRN magnesium carb,citrate,oxide (Magnesium Complex) mg PO melatonin 80 mg PO DAILY multivitamin 1 tab PO DAILY omeprazole 20 mg PO DAILY ondansetron 4 mg PO Q8H PRN polyethylene glycol 3350 (Miralax) 238 grams PO ONCE psyllium husk (Fiber (psyllium husk)) 0.4 grams PO BEDTIME rhubarb root extract (Estroven Complete Menopause Relief) mg PO rosuvastatin mg PO DAILY semaglutide (weight loss) (Wegovy) mg subcut vitamin D3-vitamin K2 125 mcg (5,000 unit)-100 mcg caps PO HPI HPI [place] Screening & Hx Gastritis : Details: 54 year old? female with past medical history of hyperlipidemia, just recently diagnosed with diabetes is here today for pre colonoscopy screening.? Patient was sent to us by her PCP.? This is her first colonoscopy screening.? Patient denies any gastrointestinal symptoms at present.? However patient reports that last year she was seen in the ED for severe abdominal pain, nausea and diarrhea. Patient had epigastric pain. Was diagnosed with possible gastritis or peptic ulcer. Patient admits that prior to that incident she was taking Excedrin every morning and ibuprofen at bedtime. Since that incident patient stopped taking NSAIDs and was started by her PCP on omeprazole. Patient is on omeprazole currently and her symptoms are suppressed for the most part, however patient admits to having occasional epigastric pain specially 2-3 days after taking Wegovy. Denies any personal or family history of gastrointestinal disease, colon polyps, or CRC.? Denies history of difficulty with sedation or anesthesia in the past.? Negative for history of sleep apnea.? Denies any history of cardiac, renal, pulmonary, or hepatic disease.?? No history of infectious? diseases like hepatitis A, B, C, HIV or tuberculosis.? Patient is not on any anticoagulation [facility] Medical History (Updated 08/29/24 @ 11:55 by IGNACIA Blanchard) HLD (hyperlipidemia) Insomnia GERD (gastroesophageal reflux disease) Family History (Updated 08/29/24 @ 11:55 by IGNACIA Blanchard) Father Prostate CA Mother Graves disease Social History Alcohol intake: never Patient Tobacco Use Status: Never used Tobacco Substance Use Type: Marijuana Review of Systems Const Denies weight gain and Denies weight loss ENT Reports no additional complaints, Denies dysphagia and Denies odynophagia Card Reports no additional complaints Resp Reports no additional complaints GI Reports abdominal pain (Epigastric, occasional), Denies belching, Denies melena, Denies bloating, Denies change in bowel habits, Denies dysphagia, Denies excessive flatus, Denies dyspepsia, Denies heartburn, Denies diarrhea, Denies loose stools, Denies nausea, Denies odynophagia and Denies vomiting Reports no additional complaints Musc Reports no additional complaints Neuro Reports no additional complaints Psych Reports no additional complaints Endo Reports no additional complaints Physical Exam Const General: healthy appearing, no acute distress and well developed Nutritional Appearance: well nourished Orientation/consciousness: patient oriented x3 Resp Effort & Inspection: normal respiratory effort, able to speak in complete sentences, no tracheal deviation and symmetric chest movement Auscultation: clear to auscultation bilaterally Cardio Rate: regular rate GI Inspection: Yes normal to inspection and No distended Palpation (GI): Soft to palpation, not firm, nontender and No hepatosplenomegaly present Auscultation: normal bowel sounds General: Yes no CVA tenderness Back/Spine/Pelvis Back: no CVA tenderness Skin General skin exam: elasticity normal, turgor normal and dry skin Neuro General: patient oriented x3 Psych Appearance: grossly normal Mental Status: mental status grossly normal Assessment & Plan Assessment & Plan (1) Screen for colon cancer: Code(s): Z12.11 - Encounter for screening for malignant neoplasm of colon (2) GERD (gastroesophageal reflux disease): Code(s): K21.9 - Gastro-esophageal reflux disease without esophagitis Qualifiers: Esophagitis presence: esophagitis presence not specified Qualified Code(s): K21.9 - Gastro-esophageal reflux disease without esophagitis (3) Postprandial epigastric pain: Code(s): R10.13 - Epigastric pain Plan .Patient denies any cardiac or respiratory symptoms.? Patient is on Wegovy and reports occasional epigastric pain postprandially up to 3 days after injection. Currently on omeprazole daily. Patient will continue omeprazole. Low send her for upper endoscopy to rule out gastritis, duodenitis, gastric or peptic ulcer, H pylori, Barretts. Patient will continue avoiding NSAIDs. Denies any issues with anesthesia in the past.? Denies any history of sleep apnea.? No history infectious diseases in the past or present.? Not on any anticoagulation therapy.? No family or personal history of colon cancer or polyps.? Patient denies melena, hematochezia, unintentional weight loss or ribbon like stools.? Discussed at length the pre-procedure,? prep, diet & medications as well as what to expect prior, during and after the procedure.?? Stressed the importance of good bowel prep.? Recommended the use of Vaseline or Calmoseptine OTC & baby wipes with bowel movements to promote comfort.? ?Patient verbalizes understanding and agrees to plan of care.? She was given the opportunity to ask questions and all questions answered.? We will see her after the procedure Medications: New bisacodyl (Dulcolax (bisacodyl)) take 4 tabs at noon the day before your colonoscopy 20 mg (4 x 5 mg) PO ONCE 1 day 4 tabs 0RF Z12.11 - Encounter for screening for malignant neoplasm of colon polyethylene glycol 3350 (Miralax) As directed by gastroenterology department at [facility] 238 grams PO ONCE 238 grams 0RF Z12.11 - Encounter for screening for malignant neoplasm of colon Discontinued ondansetron Discontinued Reason: Patient no longer taking 4 mg PO Q8H PRN 14 tabs 0RF nausea and vomiting Coding Level of Care Code New Pt Level 4 (05945) Diagnoses Screen for colon cancer Z12.11 Gastroesophageal reflux disease, unspecified whether esophagitis present K21.9 Esophagitis presence: esophagitis presence not specified Postprandial epigastric pain R10.13 Time Spent (min) 50 Comment 35 minutes spent with patient and additional 15 minutes spent reviewing her records
[2024-08-29 11:53] VITALS: BP 120/70; PULSE 104; O2SAT 96; BMI 28.5
--- OUTSIDE RECORDS SUMMARY | 2024-08-29 12:36 | XMS_ITS | Clinical Summary ---
Author Organization [facility] Address [address] [place] [address] Phone Care Team Providers Care Platemaker Name Role Phone Tala Goff MD Primary Care Pr ovider Allergies Active Allergy Reactions Criticality Noted Date Comments Prednisone 04/04/2012 Hot flashes, uncontrolled rage Medications blood glucose control high,low (FreeStyle Control) solution Use to check blood sugar once daily. 11/14/19 24 Active CHOLECALCIFEROL, VITAMIN D3, ORAL Take by mouth. Active ascorbic acid/collagen hydr (ASCORBIC ACID-COLLAGEN ORAL) Take by mouth. Active CYANOCOBALAMIN, VITAMIN B-12, ORAL Take by mouth. Active GLUCOSAMINE HCL ORAL Take by mouth. Active blood sugar diagnostic (FreeStyle Lite Strips) test strip Use to check blood sugar once daily. 11/14/19 24 Active blood-glucose meter kit Use to check blood sugar once daily. 11/14/19 24 025 Active melatonin 10 mg tablet Take 90 mg by mouth at bedtime. Active multivitamin (Multiple Vitamins) tablet Take by mouth. Active soy isofla/blk cohosh/mag bark (ESTROVEN ORAL) Take by mouth. Active omeprazole (PriLOSEC) [address] capsuleIndications :Gastroesophageal reflux disease without esophagitis Take 1 capsule (20 mg total) by mouth 1 (one) time each day. Do not crush or chew. 90 capsule 1 05/16/19 25 Active rosuvastatin (CRESTOR) 10 mg tabletIndications: Mixed hyperlipidemia Take 1 tablet (10 mg total) by mouth at bedtime. 90 each 1 05/22/19 25 025 Active semaglutide (Wegovy) 1.7 mg/0.75 mL injection penIndications:Cla ss 1 obesity due to excess calories without serious comorbidity with body mass index (BMI) of 30.0 to 30.9 in adult,Type 2 diabetes mellitus without complication, without long-term current use of insulin ([facility] V24, [facility] V28) Inject 1.7 mg under the skin every 7 (seven) days. 3 mL 08/20/19 25 025 Active semaglutide (WEGOVY) 1 mg/0.5 mL injection penIndications:Cla ss 1 obesity due to excess calories without serious comorbidity with body mass index (BMI) of 30.0 to 30.9 in adult Inject 1 mg under the skin every 7 (seven) days. 2 mL 07/22/19 25 025 Discontinued Active Problems Problem Noted Date Diagnosed Date Mixed hyperlipidemia 05/19/2024 Gastroesophageal reflux disease without esophagi tis 05/16/2024 Assessment & Plan (05/16/2024 2:26 PM EST): Stable. Continue omeprazole Orders: omeprazole (PriLOSEC) [address] capsule; Take 1 capsule (20 mg total) by mouth 1 (one) time each day. Do not crush or chew. 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 No overt symptoms of hypothyroidism. Will continue to monitor. Last TSH is as above and stable. Type 2 diabetes mellitus ([facility] V24, [facility] V 28) 11/14/2023 Assessment & Plan (05/16/2024 2:26 PM EST): Will update labs. Interested in medication for weight loss. Will prescribe wegovy once all the labs are returned and stable. She was counseled on the possible side effects of the Wegovy F/u in 4 months She will follow-up with her eye doctor for her eye exam. Orders: Hemoglobin A1c; Future Lipid panel with reflex to direct LDL; Future Comprehensive metabolic panel; Future Microalbumin creatinine urine ratio; Future Class 1 obesity due to exces s calories without serious comorbidity with body mass index (BMI) of 30.0 to 30.9 in adult 09/28/2020 Assessment & Plan (05/16/2024 2:26 PM EST): As above Advised to exercise least 30 minutes a day 5 days a week. She has an elliptical in her home Anxiety 04/04/2012 Allergic rhinitis 11/17/2010 Encounters Date Type Department Care Team Description 08/19/2024 Telephone Adult Medicine [address] [phone] Tala Goff MD 07/21/2024 Telephone Adult Medicine [address] [phone] Tala Goff MD 06/23/2024 Telephone Adult Medicine [address] [phone] Tala Goff MD from Last 3 Months Immunizations Name Administration Dates Next Due PPD Test 08/15/2016 Tdap Tetanus diptheria acell ular pertussis (Boostrix; Adacel) 7yo and older 08/15/2016 Surgical History Surgery Date Site/Laterality Comments OTHER SURGICAL HISTORY PROCEDURE: DENIES PREVIOUS SURGERY Medical History Medical History Date Comments Allergic rhinitis 11/17/2010 DX:Allergic rh initis Anxiety 04/04/2012 DX:Anxiety Gestational diabetes DX:Gestatio nal diabetes PTSD (post-traumatic stress disorder) DX:PTSD (post-traumatic stress disorder) History of basal cell carcinoma 01/14/2021 DX:History of basal cell carcinoma; COMMENT: BCC 01/18 left upper back (nodular) History of basal cell carcinoma 01/14/2021 DX:History of basal cell carcinoma Family History Medical History Relation Name Comments No Known Problems Father Heart attack Maternal Grandfather Ovarian cancer Maternal Grandmother age 7 0's Hypertension Mother elevated choles terol, Grave's Disease Lung cancer Paternal Grandfather +smoker Lung cancer Paternal Grandmother +smoker Relation Name Status Comments Father Alive Maternal Grandfather Maternal Grandmother Mother Alive Paternal Grandfather Paternal Grandmother Social History Tobacco Use Types Packs/Day Years Used Date Smoking Tobacco: Never Smokeless Tobacco: Never Tobacco Cessation:Counseling Given: Not Answered Alcohol Use Standard Drinks/Week Comments Yes 0 (1 standard drink = 0.6 oz pur e alcohol) Comments Unknown Sex and Gender Information Value Date Recorded Sex Assigned at Not on file Legal Sex Female 2:56 AM EST Gender Identity Not on file Sexual Orientation Not on file Obstetrics History Last Filed Vital Signs Vital Sign Reading Time Taken Comments Blood Pressure 106/68 05/16/2024 11:16 AM EST Pulse 96 05/16/2024 11:16 AM EST Temperature 37 ??C (98.6 ??F) 05/16/2024 11:16 AM EST Respiratory Rate 18 05/16/2024 11:16 AM EST Oxygen Saturation - - Inhaled Oxygen Concentration - - Weight 83 kg (183 lb) 05/16/2024 11:16 AM EST Height 165.1 cm (5' 5 ) 05/16/2024 11:16 AM EST Body Mass Index 30.45 05/16/2024 11:16 AM EST Plan of Treatment Upcoming Encounters Date Type Department Care Team (Late st Contact Info) Description 09/15/2024 9:30 AM EDT Office Visit Adult Medicine [address] [phone] Tala Goff MD [address] [place] [phone] 11/26/2024 1:20 PM EDT Appointment Radiology Department - [address] [phone] Health Maintenance Due Date Last Done Comments Diabetes: Annual Foot Exam 07/06/1981 Pneumococcal Vaccine: 50+ Years (1 of 2 - PCV) 07/06/1990 Pneumococcal Vaccine: Pediatrics (0 to 5 Years) and At-Risk Patients (6 to 64 Years) (1 of 2 - PCV) 07/06/1990 Zoster Vaccines (1 of 2) 07/06/2021 Colorectal Cancer Screening: Colonoscopy 04/08/2022 Depression Screening 04/08/2022 HIV Screening 04/08/2022 Social Influencers of Health Screening 04/08/2022 Diabetes: Annual Retina Eye Exam 05/01/2024 05/01/2023 Diabetes: Blood Sugar Control Test (HGBA1C) 11/16/2024 05/19/2024 Diabetes: Annual Urine Albumin-Creatinine Ratio (uACR) 05/19/2025 05/19/2024 Diabetes: Annual GFR (Glomerular Filtration Rate) 05/19/2025 05/19/2024 Cervical Cancer Screening: HPV 11/10/2025 11/10/2020 Breast Cancer Screening 11/21/2025 11/22/19, 11/22/2023, 11/20/2022, Additional history exists DTaP,Tdap,and Td Vaccines (2 - Td or Tdap) 08/15/2026 08/15/2016 Cholesterol Screening (Lipid Panel) 05/19/2029 05/19/2024 Influenza Vaccine Discontinued 02/01/2020, , 02/09/2011 COVID-19 Vaccine Discontinued 08/07/2020, 07/17/2020 Hepatitis C Screening Completed 05/19/2024 HIB Vaccines Aged Out No longer eligi ble based on patient's age to complete this topic HPV Vaccines Aged Out No longer eligi ble based on patient's age to complete this topic Hepatitis A Vaccines Aged Out No long er eligible based on patient's age to complete this topic Hepatitis B Vaccines Discontinued IPV Vaccines Aged Out No longer eligi ble based on patient's age to complete this topic MMR Vaccines Aged Out No longer eligi ble based on patient's age to complete this topic Meningococcal ACWY Vaccine Aged Out N o longer eligible based on patient's age to complete this topic Meningococcal B Vaccine Aged Out No l onger eligible based on patient's age to complete this topic RSV Immunization Patients Under 20 months Aged Out No longer eligible based on patient's age to complete this topic Varicella Vaccines Aged Out No longer eligible based on patient's age to complete this topic Procedures Procedure Name Priority Date/Time Associated Diagnosis Comments HEPATITIS C ANTIBODY Routine 05/19/2024 10:15 AM EST Need for hepatitis C screening test MICROALBUMIN CREATININE URINE RATIO Routine 05/19/2024 10:15 AM EST Type 2 diabetes mellitus without complication, without long-term current use of insulin ([facility] V24, [facility] V28) COMPREHENSIVE METABOLIC PANEL Routine 05/19/2024 10:15 AM EST Type 2 diabetes mellitus without complication, without long-term current use of insulin ([facility] V24, [facility] V28) HEMOGLOBIN A1C Routine 05/19/2024 10:15 AM EST Type 2 diabetes mellitus without complication, without long-term current use of insulin ([facility] V24, [facility] V28) LIPID PANEL WITH REFLEX TO DIRECT LDL Routine 05/19/2024 10:15 AM EST Type 2 diabetes mellitus without complication, without long-term current use of insulin ([facility] V24, [facility] V28) SCREENING MAMMOGRAPHY BI 2-VIEW BREAST INC CAD Routine 11/22/2023 1:19 PM EDT Encounter for screening mammogram for malignant neoplasm of breast HM HPV Routine 11/10/2020 from Last 3 Months or Most Recently Relevant to Health Maintenance Results * Hepatitis C antibody (05/19/2024 10:15 AM EST) Hepatitis C Antibody Negative Negative LAB CHEMISTRY METHOD 05/19/2024 12:53 PM EST [facility] Blood Venous blood specimen / Unknown Venipuncture / Unknown 05/19/2024 10:15 AM EST 05/19/2024 10:15 AM EST us Tala Goff MD LAB BLOOD ORDERA BLES Final Result [facility] [address] [place] [address], [place] [phone] * (ABNORMAL) Lipid panel with reflex to direct LDL (05/19/2024 10:15 AM EST) Cholesterol 225(H) 0 - 200 mg/dL LAB CHEMISTRY METHOD 05/19/2024 12:[address] [facility] Triglycerides 181(H) 0 - 150 mg/dL LAB CHEMISTRY METHOD 05/19/2024 12:[address] [facility] HDL 50 >=40 mg/dL LAB CHEMISTRY METHOD 05/19/2024 12:[address] [facility] LDL Calculated 139(H) 0 - 100 mg/dL LAB CHEMISTRY METHOD 05/19/2024 12:[address] [facility] VLDL Cholesterol Femi 36.2 mg/dL LAB CHEMISTRY METHOD 05/19/2024 12:[address] [facility] Non HDL Chol. (LDL+VLDL) 175(H) <145 mg/dL LAB CHEMISTRY METHOD 05/19/2024 12:[address] [facility] Chol/HDL Ratio 4.5(H) 0.0 - 4.4 LAB CHEMISTRY METHOD 05/19/2024 12:[address] [facility] Blood Venous blood specimen / Unknown Venipuncture / Unknown 05/19/2024 10:15 AM EST 05/19/2024 10:15 AM EST Tala Goff MD LAB BLOOD ORDERA BLES Final Result [facility] [address] [place] [address], [place] [phone] * Microalbumin creatinine urine ratio (05/19/2024 10:15 AM EST) Creatinine, Urine 151.0 mg/dL LAB CHEMISTRY METHOD 05/19/2024 1:[address] [facility] Microalb, Ur 11.9 0.0 - 29.0 mg/L LAB CHEMISTRY METHOD 05/19/2024 1:01 PM EST [facility] Microalb/Creat Ratio 8 <30 mg/g creat LAB CHEMISTRY METHOD 05/19/2024 1:[address] [facility] Urine Urine specimen obtained by clean catch procedure / Unknown Non-blood Collection / Unknown 05/19/2024 10:15 AM EST 05/19/2024 10:15 AM EST Tala Goff MD LAB URINE ORDERA BLES Final Result Performing Organization Address [facility]/ZIP Co de Phone Number [facility] [address] [place] [address], [place] [phone] * (ABNORMAL) Hemoglobin A1c (05/19/2024 10:15 AM EST) Hemoglobin A1C 6.6(H) <6.5 % LAB CHEMISTRY METHOD 05/19/2024 6:[address] [facility] Mean Bld Glu Estim. 143 mg/dL LAB CHEMISTRY METHOD 05/19/2024 6:[address] [facility] Blood Venous blood specimen / Unknown Venipuncture / Unknown 05/19/2024 10:15 AM EST 05/19/2024 10:15 AM EST Tala Goff MD LAB BLOOD ORDERA BLES Final Result [facility] [address] [place] [address], [place] [phone] * (ABNORMAL) Comprehensive metabolic panel (05/19/2024 10:15 AM EST) Sodium 138 133 - 145 mmol/L LAB CHEMISTRY METHOD 05/19/2024 12:[address] [facility] Potassium 4.3 3.5 - 5.5 mmol/L LAB CHEMISTRY METHOD 05/19/2024 12:[address] [facility] Chloride 103 96 - 110 mmol/L LAB CHEMISTRY METHOD 05/19/2024 12:[address] [facility] CO2 29 21 - 32 mmol/L LAB CHEMISTRY METHOD 05/19/2024 12:[address] [facility] Anion Gap 6 3 - 11 LAB CHEMISTRY METHOD 05/19/2024 12:[address] [facility] Glucose 124(H) 70 - 100 mg/dL LAB CHEMISTRY METHOD 05/19/2024 12:[address] [facility] BUN 14 5 - 25 mg/dL LAB CHEMISTRY METHOD 05/19/2024 12:[address] [facility] Creatinine 0.88 0.50 - 1.10 mg/dL LAB CHEMISTRY METHOD 05/19/2024 12:[address] [facility] eGFR 79 >=60 mL/min/1. 73m2 LAB CHEMISTRY METHOD 05/19/2024 12:[address] [facility] Comment:Calculation based on the??Chronic Kidney Disease Epidemiology Collaboration (CKD-EPI) equation refit??without adjustment for race. BUN/Creatinine Ratio 15.9 LAB CHEMISTRY METHOD 05/19/2024 12:[address] [facility] Calcium 9.6 8.5 - 10.5 mg/dL LAB CHEMISTRY METHOD 05/19/2024 12:[address] [facility] AST (SGOT) 14 10 - 42 unit/L LAB CHEMISTRY METHOD 05/19/2024 12:[address] [facility] ALT (SGPT) 21 10 - 60 unit/L LAB CHEMISTRY METHOD 05/19/2024 12:[address] [facility] Alkaline Phosphatase 88 42 - 121 unit/L LAB CHEMISTRY METHOD 05/19/2024 12:[address] [facility] Total Protein 7.0 6.0 - 8.0 g/dL LAB CHEMISTRY METHOD 05/19/2024 12:40 PM EST [facility] Albumin 3.6 3.2 - 5.0 g/dL LAB CHEMISTRY METHOD 05/19/2024 12:40 PM EST [facility] Total Bilirubin 0.3 0.0 - 1.4 mg/dL LAB CHEMISTRY METHOD 05/19/2024 12:40 PM EST [facility] Blood Venous blood specimen / Unknown Venipuncture / Unknown 05/19/2024 10:15 AM EST 05/19/2024 10:15 AM EST Tala Goff MD LAB BLOOD ORDERA BLES Final Result [facility] [address] [place] [address], * SCREENING MAMMOGRAPHY BI 2-VIEW BREAST INC CAD (11/22/2023 1:19 PM EDT) Anatomical Region Laterality Modality Radiographic April ging 11/20/2022 2:29 PM EDT Narrative 11/23/2023 2:54 PM EDT This is a summary report. The complete report is available in the patient's medical record. If you cannot access the medical record, please contact the sending organization for a detailed fax or copy. Exam: Screening mammogram Findings: Digital bilateral full-field screening mammography is performed with tomosynthesis and interpreted with the aid of computer-aided detection. ??Comparison is made with 11/20/2022 and as far back as 11/16/2020. Breast parenchyma is composed of scattered fibroglandular densities. ??No new suspicious mass, architectural distortion, or suspicious calcifications. Impression: No mammographic evidence of malignancy. BI-RADS 1 - negative Procedure Note Shanika Simmons MD - 03/24/2024 This is a summary report. The complete report is available in thepatient's medical record. If you cannot access the medical record, pleasecontact the sending organization for a detailed fax or copy. Exam: Screening mammogram Findings: Digital bilateral full-field screening mammography is performedwith tomosynthesis and interpreted with the aid of computer-aideddetection. Comparison is made with 11/20/2022 and as far back as11/16/2020. Breast parenchyma is composed of scattered fibroglandular densities. Nonew suspicious mass, architectural distortion, or suspiciouscalcifications. Impression: No mammographic evidence of malignancy. BI-RADS 1 - negative Yun Dumont MD IMG XR PROCEDURES Final Res ult * Cervical Cancer Screening: HPV (11/10/2020) Cervical Cancer Screening: HPV Negative, Abstracted Historical Provider HEALTH MAINTENANCE Final Result from Last 3 Months or Most Recently Relevant to Health Maintenance Insurance [facility] Care Teams Platemaker Relationship Specialty Start Date End Date Tala Goff MD [address] [facility] [place], [place] PCP - General Internal Medicine 02/07/22
== END 2024-08-29 12:44 | disposition home or self-care (01) ==
LOC: HO.HGI 11:39
PROVIDERS: PCP Family Medicine; Visit Provider Nurse Practitioner Family
DX: K21.9 Gastro-esophageal reflux disease without esophagitis (principal); Z12.11 Encounter for screening for malignant neoplasm of colon
CPT/HCPCS: 99203

== ENCOUNTER → 2024-08-29 11:38 | Outpatient (BNVA) | payer BC, SELFPAY | PROVIDERS: PCP Family Medicine; Visit Provider Nurse Practitioner Family ==